=== PATIENT | female | born 1995 | race American Indian/Alaskan Native ===

== ENCOUNTER 2017-01-12 12:43 | Emergency (ER) | payer OTHER ==
[2017-01-12 12:52] VITALS: BMI 23.9
[2017-01-12 12:56] VITALS: BP 103/68; PULSE 90; RESP 16; TEMP 98.1; O2SAT 100
--- NOTE | 2017-01-12 13:10 | ED PDOC ---
Arrival/HPI - General Chief Complaint: Female Genitourinary Time Seen by Provider: 01/12/17 12:57 Historian: Patient - History of Present Illness Narrative History of Present Illness (Text): 01/12/17 13:00 21 year old female, whose past medical history includes asthma and anxiety, presents to the emergency department complaining of vaginal fluid leakage. She states she has similar yesterday. Patient notes she recently had checkup at another instition last night and was discharged home. Patient denies of any abdominal pain, chest pain, vaginal bleeding, or any other complaints. No PMD 01/12/17 16:00 Time/Duration: Other (last night) Symptom Onset: Sudden Past Medical History - Provider Review Nursing Documentation Reviewed: Yes - Infectious Disease Hx of Infectious Diseases: None - Cardiac Hx Cardiac Disorders: No - Pulmonary Hx Respiratory Disorders: Yes Hx Asthma: Yes - Neurological Hx Headaches: No - HEENT Hx Glaucoma: No - Renal Hx Dialysis: No - Endocrine/Metabolic Hx Systemic Lupus Erythematosus: No - Hematological/Oncological Hx Blood Disorders: No - Integumentary Hx Psoriasis: No - Musculoskeletal/Rheumatological Hx Musculoskeletal Disorders: No - Gastrointestinal Hx Constipation: No - Genitourinary/Gynecological Hx Genitourinary Disorders: No - Psychiatric Hx Psychophysiologic Disorder: Yes Hx Anxiety: Yes Hx Substance Use: No - Anesthesia Hx Anesthesia: No Hx Anesthesia Reactions: No Hx Malignant Hyperthermia: No Family/Social History - Physician Review Nursing Documentation Reviewed: Yes Family/Social History: No Known Family HX Smoking Status: Never Smoked Hx Alcohol Use: No Hx Substance Use: No Allergies/Home Meds Allergies/Adverse Reactions: Allergies No Known Allergies Allergy (Verified 01/12/17 12:52) Home Medications: Home Meds Medication Instructions Recorded Confirmed Vit No.126/Iron/Folic 1 tab PO DAILY 01/12/17 01/12/17 [Classic Tablet] Review of Systems - Physician Review All systems were reviewed & negative as marked: Yes - Review of Systems Cardiovascular: absent: Chest Pain Gastrointestinal: absent: Abdominal Pain Genitourinary Female: Vaginal Discharge. absent: Vaginal Bleeding Physical Exam Vital Signs Reviewed: Yes Vital Signs Temp Pulse Resp BP Pulse Ox 01/12/17 12:56 98.1 F 90 16 103/68 100 Temperature: Afebrile Blood Pressure: Normal Pulse: Regular Respiratory Rate: Normal Appearance: Positive for: Well-Appearing Pain Distress: None Mental Status: Positive for: Alert and Oriented X 3 - Systems Exam Head: Present: Atraumatic, Normocephalic Pupils: Present: PERRL Extroacular Muscles: Present: EOMI Conjunctiva: Present: Normal Mouth: Present: Moist Mucous Membranes Neck: Present: Normal Range of Motion Respiratory/Chest: Present: Clear to Auscultation, Good Air Exchange. No: Respiratory Distress, Accessory Muscle Use Cardiovascular: Present: Regular Rate and Rhythm, Normal S1, S2. No: Murmurs Abdomen: Present: Other (gravid; there is movement) Back: Present: Normal Inspection Upper Extremity: Present: Normal Inspection. No: Cyanosis, Edema Lower Extremity: Present: Normal Inspection. No: Edema Neurological: Present: GCS=15, CN II-XII Intact, Speech Normal Skin: Present: Warm, Dry, Normal Color. No: Rashes Psychiatric: Present: Alert, Oriented x 3, Normal Insight, Normal Concentration Medical Decision Making ED Course and Treatment: 01/12/17 13:05 Impression: 21 year old female with vaginal fluid leakage. Physical exam shows abdomen is gravid and movement. Plan: -- Reassess and disposition Prior Visits: Notes and results from previous visits were reviewed. Patient was last seen in the emergency department 03/02/2016 for chest pain. Patient was discharged home. Progress Notes: Leaving Against Medical Advice (AMA): The patient is choosing to leave against medical advice due to not wanting to be transferred to another facility. I have personally explained to the patient that choosing to do so may result in permanent bodily harm or . I have discussed at great length that without further evaluation and monitoring there may be unforeseen circumstances and/or deterioration causing permanent bodily harm or as a result of their choice. The patient is alert, oriented, and shows the mental capacity to make clear decisions regarding the patients health care at this time. The patient continues to wish to leave against medical advice. In light of the patients decision to leave against medical advice, follow-up has been arranged and the patient is aware of the importance to following up as instructed. The patient has been advised that they should return to the emergency room immediately if they change their mind at any time, or if their condition begins to change or worsen in any way. 01/12/17 16:00 pt does not wish for eval at [facility], to discuss case with obgyn and arrrange potential transfer. - Scribe Statement The provider has reviewed the documentation as recorded by the Scribe Adams Ayala Provider Scribe Attestation: All medical record entries made by the Scribe were at my direction and personally dictated by me. I have reviewed the chart and agree that the record accurately reflects my personal performance of the history, physical exam, medical decision making, and the department course for this patient. I have also personally directed, reviewed, and agree with the discharge instructions and disposition. Disposition/Present on Arrival - Present on Arrival Any Indicators Present on Arrival: No History of DVT/PE: No History of Uncontrolled Diabetes: No Urinary Catheter: No History of Decub. Ulcer: No History Surgical Site Infection Following: None - Disposition Have Diagnosis and Disposition been Completed?: Yes Diagnosis: Threatened miscarriage Disposition: AGAINST MEDICAL ADVICE Disposition Time: 01:00 Condition: UNKNOWN Discharge Instructions (ExitCare): Threatened Miscarriage (ED), Premature Rupture of Membranes (ED), Acute Abdominal Pain (ED), Against Medical Advice (ED ) Additional Instructions: you are leaving without evaluation, possible transfer to another facilty. you are able to return at any point with any concern. Referrals: [facility] [Outside] - Follow up with primary [facility] [Outside] - Follow up with primary Forms: [employer] (Lithuanian)
== END 2017-01-12 13:27 | disposition left against medical advice (07) ==
LOC: ED 12:43
DX: O20.0 Threatened abortion (principal); Z3A.28 28 weeks gestation of pregnancy